=== PATIENT | male | born 1990 | race Caucasian/White ===

== ENCOUNTER 2017-04-16 21:20 | Emergency (ER) | payer SELFPAY ==
[2017-04-16 21:49] VITALS: BP 107/50; PULSE 85; TEMP 97.9; BMI 32.9
--- NOTE | 2017-04-16 21:59 | PDOC ---
History of Present Illness - General Chief Complaint: Pain Stated Complaint: SORE THROAT Time Seen by Provider: 04/16/17 21:58 - History of Present Illness Initial Comments: 26 year old male recently released from [facility] presenting with sore throat, right eye pain and injection, ear fullness, and cough for the past two weeks. He states that two days after his release on 03/31/17 he began to feel soreness in his throat and some ear fullness along with some redness in his right eye. He also has had occasional episodes of warmth but no recorded fevers at home or night sweats. The cough is productve of clear sputum and he had an episode of post-tussive emesis (clear phelgm) two days ago as well. He had an HIV test in [facility] that was negative back in February. He has had a few episodes of diarrhea over the past two days as well. He also admits to a lot of alcohol ingestion and marijuana inhalation that he was hoping would "break up my mucous". He denies chest pain, constipation, hemoptysis, palpitations, or other symptoms. 04/16/17 22:58 Past History - Past Medical History Allergies/Adverse Reactions: Allergies Allergy/AdvReac Type Severity Reaction Status Date / Time No Known Allergies Allergy Verified 04/16/17 21:49 Home Medications: Ambulatory Orders NK [No Known Home Medication] 04/16/17 Psychiatric Problems: Yes (Anxiety) - Surgical History GI Surgery: Yes (lt shoulder) - Immunization History Td Vaccination: Yes Immunization Up to Date: Yes - Psycho/Social/Smoking Cessation Hx Anxiety: No Suicidal Ideation: No Smoking Status: No Smoking History: Current every day smoker Years of Tobacco Use: 0 Number of Cigarettes Smoked Daily: 10 Cigars Per Day: 0 Information on smoking cessation initiated: No Hx Alcohol Use: No Drug/Substance Use Hx: No Substance Use Type: Marijuana Review of Systems - Review of Systems Constitutional: Yes: Loss of Appetite. No: Chills, Diaphoresis, Fever HEENTM: Yes: Eye Pain. No: Blurred Vision, Tearing, Recent change in vision, Double Vision Respiratory: Yes: Cough, Productive cough. No: Shortness of Breath, Wheezing Cardiac (ROS): No: Chest Pain, Irregular Heart Rate ABD/GI: Yes: Diarrhea, Poor Appetite, Vomiting. No: Constipated, Nausea : No: Burning, Dysuria, Discharge, Frequency Musculoskeletal: Yes: Back Pain Neurological: No: Headache *Physical Exam - Vital Signs Last Vital Signs Temp Pulse Resp BP Pulse Ox 97.9 F 85 18 107/50 98 04/16/17 21:43 04/16/17 21:43 04/16/17 21:43 04/16/17 21:43 04/16/17 21:43 - Physical Exam General Appearance: Yes: Nourished, Appropriately Dressed. No: Apparent Distress HEENT: positive: EOMI, [place] (Scleral injection in left eye at lateral and medial margins but no drainage or exudate.), Muffled/Hoarse voice, Pharyngeal Erythema, TM Bulging (Bulging but not opaque). negative: Normal Voice (Course vocal quality), Pharynx Normal (Erythematous curbing stonecutter oropharnyx), Photophobia, Tonsillar Exudate, Tonsillar Erythema, Nasal Congestion, Rhinorrhea, Sinus Tenderness, Hearing Decreased Neck: positive: Trachea midline, Normal Thyroid, Supple. negative: Tender, Rigid Respiratory/Chest: positive: Lungs Clear, Normal Breath Sounds. negative: Chest Tender, Respiratory Distress, Accessory Muscle Use Cardiovascular: positive: Regular Rhythm, Regular Rate. negative: S1, S2, Edema Gastrointestinal/Abdominal: positive: Normal Bowel Sounds, Flat, Soft. negative : Tender, Organomegaly Musculoskeletal: positive: Normal Inspection, Other (Right Lower paraspinal tenderness). negative: CVA Tenderness Neurologic: positive: Fully Oriented, Alert, Normal Mood/Affect, Normal Response Medical Decision Making - Medical Decision Making 26 year old recently incarcerated male presenting with cough, sore throat, and ear fullness for the past two weeks. This is most likely a viral syndrome but given his recent incarceration, he should be ruled out for TB and HIV. He declined a repeat HIV test because of his negative reaction in February. A rapid strep will be sent in addition to a CXR. Symptomatic treatment will be pursued including viscous lidocaine and toradol 15 IM. 04/17/17 00:42 04/17/17 00:46 CXR returned negative and rapid step negative. Pain was relieved with Toradol and viscous lidocaine. he will be sent home with follow up with Topher Slade and a prescription for cough syrup and Tessalon pearls. *DC/Admit/Observation/Transfer Diagnosis at time of Disposition: Sore throat - Discharge Dispostion Disposition: HOME Condition at time of disposition: Improved Admit: No - Referrals Referrals: Topher Slade MD [Staff Physician] - - Patient Instructions Additional Instructions: You were seen for cough, sore throat, and eye redness. We believe this is all caused by a viral infection that will get better after taking some cough medication and resting your body. You should avoid drinking, smoking, and staying up later for the next week to allow your body to heal and your throat to get better. Please follow up with Dr. Slade early this week to discuss any of your other concerns. Please return if you have worsening symptoms over the next few days or if you do not get better after 4-5 days. - Attestations Physician Attestion: I, Dr. Adarsh Irwin, attest that this document has been prepared under my direction and personally reviewed by me in its entirety. I further attest, that it accurately reflects all work, treatment, procedures and medical decision -making performed by me. 04/17/17 00:51
--- NOTE | 2017-04-16 22:39 | PDOC ---
Attending Attestation - Resident Resident Name: Adarsh Irwin - ED Attending Attestation I have performed the following: I have examined & evaluated the patient, The case was reviewed & discussed with the resident, I agree w/resident's findings & plan, Exceptions are as noted - HPI HPI: 04/16/17 22:32 26yo M hx recently incarderated (released 03/31/17) p/w 2 weeks of sore throat, cough, subjective fevers, and vomiting after coughing. Sore throat presented initially, then productive cough of clear sputum. Has not checked his temperature. Here today as sore throat is worse and he is vomiting clear mucous. Has tried marijuana to help with cough. +etoh use___. + sick contact with one of his sexual encounters. Also reports 2 episodes of NB diarrhea daily for the last 2 days. Denies CP, SOB, weight loss or night sweats. No hemoptysis. Denies abd pain, penile DC, dysuria. - Physicial Exam PE: 04/16/17 22:36 Vital Signs Temp Pulse Resp BP Pulse Ox 97.9 F 85 18 107/50 98 04/16/17 21:43 04/16/17 21:43 04/16/17 21:43 04/16/17 21:43 04/16/17 21:43 " GENERAL: Awake, alert, and fully oriented, in no acute distress HEAD: No signs of trauma EYES: PERRLA, EOMI, sclera anicteric, +mild L scleral injection ENT: Auricles normal inspection, hearing grossly normal, nares patent, mild oropharyngeal erythem without exudates. Moist mucosa NECK: Normal ROM, supple, no lymphadenopathy, JVD, or masses LUNGS: Breath sounds equal, clear to auscultation bilaterally. No wheezes, and no crackles HEART: Regular rate and rhythm, normal S1 and S2, no murmurs, rubs or gallops ABDOMEN: Soft, nontender, normoactive bowel sounds. No guarding, no rebound. No masses EXTREMITIES: Normal range of motion, no edema. No clubbing or cyanosis. No cords, erythema, or tenderness MUSCULOSKELETAL: FROM in all extremities, no deformities NEUROLOGICAL: Normal speech SKIN: Warm, Dry, normal turgor, no rashes or lesions noted. " - Medical Decision Making 04/17/17 00:24 26yo M recently incarcerated p/w cough, post-tussive emesis, sore throat, subjective fevers, and mildly injected eye. Likely viral syndrome but given patient was recently incarcerated, will check CXR. Pt declines HIV test as he had one 2 months ago. Will check throat swab for strep throat -rapid strep test -CXR -toradol for sore throat -likely DC to f/u with Dr Topher Slade who he used to see prior to being incarcerated 04/17/17 00:34 CXR clear Throat swab negative Pt feels better, will follow up with Dr. Slade within 1 week Stable for DC home
[2017-04-16] MEDS ORDERED: KETOROLAC TROMETHAMINE 15 MG/ML VIAL IM ONE (22:46)
[2017-04-16] MEDS ORDERED: KETOROLAC TROMETHAMINE 30 MG/1 ML VIAL ONE (23:14)
[2017-04-16] MEDS ORDERED: LIDOCAINE VISCOUS 2% ORAL/TOP 20 ML UNIT-DOSE CUP MM ONE (23:59)
== END 2017-04-17 01:57 | disposition home or self-care (01) ==
LOC: JER 21:20
PROC: 3E0233Z Introduction of Anti-inflammatory into Muscle, Percutaneous Approach (ICD-10-PCS; principal; 2017-04-16)
DX: J02.9 Acute pharyngitis, unspecified (principal); F41.9 Anxiety disorder, unspecified; F17.210 Nicotine dependence, cigarettes, uncomplicated
CPT/HCPCS: 71020-TC; 87070; 87430; 99282-25

== ENCOUNTER 2019-02-15 00:18 | Emergency (ER) | payer OTHER | END 2019-02-15 02:35 | disposition home or self-care (01) | LOC: JER 00:18 ==

== ENCOUNTER 2019-04-16 09:59 | Emergency (ER) | payer OTHER ==
[2019-04-16 10:07] VITALS: BP 121/82; PULSE 98; TEMP 97.8; BMI 33.0
[2019-04-16] MEDS ORDERED: ONDANSETRON 4 MG TABLET PO ONE (10:45)
[2019-04-16] MEDS ORDERED: LOPERAMIDE HCL 2 MG CAPSULE PO ONE (10:45)
[2019-04-16] MEDS ORDERED: MAG HYDROX/AL HYDROX/SIMETH 30 ML UNIT-DOSE CUP PO ONE (10:45)
--- NOTE | 2019-04-16 10:57 | PDOC ---
History of Present Illness - General Chief Complaint: Pain, Acute Stated Complaint: NAUSEA/SHAKY Time Seen by Provider: 04/16/19 10:16 History Source: Patient Exam Limitations: No Limitations - History of Present Illness Initial Comments: 04/16/19 10:58 28 y/o male presents to the ED w/ c/o nausea, vomiting, and upper abd cramping along with anxiety since last night. Pt states was placed on Klonopin a few months ago for anxiety and nw feels he is addicted to them. pt also on [place] and was told to go to the ED for evaluation. Timing/Duration: intermittent Severity: moderate Associated Symptoms: reports: nausea/vomiting Past History - Travel Traveled outside of the country in the last 30 days: No Close contact w/someone who was outside of country & ill: No - Past Medical History Allergies/Adverse Reactions: Allergies Allergy/AdvReac Type Severity Reaction Status Date / Time No Known Allergies Allergy Verified 04/16/19 10:03 Home Medications: Ambulatory Orders Diphenhydramine HCl [Benadryl Capsule -] 25 mg PO HS 04/12/19 Anemia: No Asthma: No Cancer: No Cardiac Disorders: No CVA: No ( ) COPD: No CHF: No Diabetes: No GI Disorders: No Disorders: No HTN: No Hypercholesterolemia: No Liver Disease: No Psychiatric Problems: Yes (Anxiety) Seizures: Yes (drug related oct 2017) Thyroid Disease: No - Surgical History GI Surgery: Yes (lt shoulder) Orthopedic Surgery: Yes (left shoulder surgery) - Immunization History Td Vaccination: Yes TDAP Vaccination: Yes Immunization Up to Date: Yes - Suicide/Smoking/Psychosocial Hx Smoking Status: No Smoking History: Current every day smoker Years of Tobacco Use: 0 Have you smoked in the past 12 months: No Number of Cigarettes Smoked Daily: 10 Cigars Per Day: 0 Information on smoking cessation initiated: Yes Hx Alcohol Use: No Drug/Substance Use Hx: Yes (KLONOPIN) Substance Use Type: Alcohol, Heroin, Marijuana, Opiates, Tranquilizers Hx Substance Use Treatment: Yes (detox, rehab) Patient Lives Alone: No Review of Systems - Review of Systems Able to Perform ROS?: Yes Constitutional: No: Symptoms Reported HEENTM: No: Symptoms Reported Respiratory: No: Symptoms reported Cardiac (ROS): No: Symptoms Reported ABD/GI: Yes: Diarrhea, Nausea, Vomiting : No: Symptoms Reported Musculoskeletal: No: Symptoms Reported Integumentary: No: Symptoms Reported Neurological: No: Symptoms reported Psychiatric: Yes: Anxiety *Physical Exam - Vital Signs Last Vital Signs Temp Pulse Resp BP Pulse Ox 97.8 F 98 H 18 121/82 100 04/16/19 10:03 04/16/19 10:03 04/16/19 10:03 04/16/19 10:03 04/16/19 10:03 - Physical Exam General Appearance: Yes: Nourished, Appropriately Dressed. No: Apparent Distress HEENT: negative: Pale Conjunctivae Neck: positive: Supple Respiratory/Chest: positive: Lungs Clear, Normal Breath Sounds. negative: Respiratory Distress, Accessory Muscle Use Cardiovascular: positive: Regular Rhythm, Regular Rate. negative: Murmur Gastrointestinal/Abdominal: positive: Soft. negative: Tenderness Extremity: positive: Normal Inspection Integumentary: positive: Normal Color, Warm, Moist Neurologic: positive: Motor Strength 5/5 (ambulatory) Medical Decision Making - Medical Decision Making 04/16/19 10:32 CC: Nausea, diarrhea, and upper abd pain, ran out of Klonopin 2mg and had last one yesterday morning , now anxious Exam: vss, no abd tenderness, good affect Plan: maalox, zofran, and imodium 04/16/19 10:57 *DC/Admit/Observation/Transfer Diagnosis at time of Disposition: Nausea vomiting and diarrhea, Anxiety - Discharge Dispostion Disposition: HOME Condition at time of disposition: Good - Referrals - Patient Instructions Printed Discharge Instructions: Anxiety and Panic Attacks (Alternative Therapy) , Nausea and Vomiting-Adult Additional Instructions: Please take medication as prescribed as needed for your nausea, vomiting, or diarrhea. I also recommend reading over information on alternative therapy for anxiety. - Post Discharge Activity
[2019-04-16] MEDS ORDERED: MAG HYDROX/AL HYDROX/SIMETH 30 ML UNIT-DOSE CUP ONE ×2 (11:18→12:15)
[2019-04-16] MEDS ORDERED: LOPERAMIDE HCL 2 MG CAPSULE ONE ×2 (11:18→12:15)
[2019-04-16] MEDS ORDERED: ONDANSETRON *ODT* 4 MG TABLET ONE ×2 (11:18→12:15)
== END 2019-04-16 12:23 | disposition home or self-care (01) ==
LOC: JER 09:59
DX: F41.9 Anxiety disorder, unspecified (principal)
CPT/HCPCS: 99281-25

== ENCOUNTER 2019-06-02 07:30 | Emergency (ER) | payer SELFPAY ==
[2019-06-02 07:40] VITALS: BP 115/76; PULSE 111; TEMP 98.8; BMI 32.6
--- NOTE | 2019-06-02 08:15 | PDOC ---
History of Present Illness - General Chief Complaint: Eye Problem Stated Complaint: PINK EYE Time Seen by Provider: 06/02/19 07:53 History Source: Patient - History of Present Illness Timing/Duration: other Severity: moderate Past History - Past Medical History Allergies/Adverse Reactions: Allergies Allergy/AdvReac Type Severity Reaction Status Date / Time No Known Allergies Allergy Verified 04/16/19 10:03 Home Medications: Ambulatory Orders Diphenhydramine HCl [Benadryl Capsule -] 25 mg PO HS 04/12/19 Loperamide HCl [Imodium -] 2 mg PO Q8H PRN #21 capsule 04/16/19 Mag Hydrox/Aluminum Hyd/Simeth [Maalox Advanced Suspension] 30 ml PO QID PRN # 300 ml 04/16/19 Ondansetron HCl [Zofran] 4 mg PO TID PRN #12 tablet 04/16/19 Erythromycin 0.5% Eye Ointment [Erythromycin 0.5% Eye Ointment -] 1 applic OD DAILY #1 tube 06/02/19 Anemia: No Asthma: No Cancer: No Cardiac Disorders: No CVA: No ( ) COPD: No CHF: No Diabetes: No GI Disorders: No Disorders: No HTN: No Hypercholesterolemia: No Liver Disease: No Psychiatric Problems: Yes (Anxiety) Seizures: Yes (drug related oct 2017) Thyroid Disease: No - Surgical History GI Surgery: Yes (lt shoulder) Orthopedic Surgery: Yes (left shoulder surgery) - Immunization History Td Vaccination: Yes TDAP Vaccination: Yes Immunization Up to Date: Yes - Suicide/Smoking/Psychosocial Hx Smoking Status: No Smoking History: Current every day smoker Years of Tobacco Use: 0 Have you smoked in the past 12 months: No Number of Cigarettes Smoked Daily: 10 Cigars Per Day: 0 Information on smoking cessation initiated: No Hx Alcohol Use: No Drug/Substance Use Hx: Yes (KLONOPIN) Substance Use Type: Alcohol, Heroin, Marijuana, Opiates, Tranquilizers Hx Substance Use Treatment: Yes (detox, rehab) Review of Systems - Review of Systems Constitutional: No: Chills, Fever HEENTM: Yes: Eye Pain, Tearing, Throat Pain. No: Blurred Vision, Ear Pain Respiratory: No: Cough *Physical Exam - Vital Signs Last Vital Signs Temp Pulse Resp BP Pulse Ox 98.8 F 111 H 20 115/76 99 06/02/19 07:34 06/02/19 07:34 06/02/19 07:34 06/02/19 07:34 06/02/19 07:34 - Physical Exam General Appearance: Yes: Appropriately Dressed. No: Apparent Distress HEENT: positive: Normal Voice, Other (R conjunc erythema w/ copious yellow discharge, minimal swelling to periorbital area without erythema, warmth or ttp , no lid lesions) Neck: positive: Supple. negative: Lymphadenopathy (R), Lymphadenopathy (L) Respiratory/Chest: negative: Respiratory Distress Integumentary: positive: Dry, Warm Neurologic: positive: Fully Oriented, Alert, Normal Mood/Affect Medical Decision Making - Medical Decision Making 06/02/19 08:18 28 yo M, no sig hx, here w/ R conjunc erythema w/ pain and yellow discharge x 2 days. No itching or blurry vision. Also reports throat pain. No f/c. No sick contacts. No contact lens use see exam Conjunctivitis No contact lens use Rpt HR 86, was 111 at triage, R conjunc erythema w/ yellow discharge -Dc w/ erythromycin ointment, basic eye care -contact precautions given -To return as needed 06/02/19 08:22 *DC/Admit/Observation/Transfer Diagnosis at time of Disposition: Conjunctivitis Qualifiers: Conjunctivitis type: unspecified Laterality: right Qualified Code(s): H10.9 - Unspecified conjunctivitis - Discharge Dispostion Disposition: HOME Condition at time of disposition: Good - Prescriptions Prescriptions: Erythromycin 0.5% Eye Ointment [Erythromycin 0.5% Eye Ointment -] 1 applic OD DAILY #1 tube - Referrals - Patient Instructions Printed Discharge Instructions: Conjunctivitis Additional Instructions: Use ointment as directed Apply warm compresses frequently throughout the day Return to the ER for worsening of symptoms - Post Discharge Activity Forms/Work/School Notes: Back to Work
== END 2019-06-02 08:34 | disposition home or self-care (01) ==
LOC: JER 07:30
DX: H10.31 Unspecified acute conjunctivitis, right eye (principal)
CPT/HCPCS: 99281-25

== ENCOUNTER 2019-07-05 09:26 | Inpatient (IN) | payer OTHER ==
[2019-07-05 09:41] VITALS: BMI 30.4
--- NOTE | 2019-07-05 10:42 | HP ---
"CIWA Score Nausea/Vomitin-Mild Nausea/No Vomiting Muscle Tremors: 1-None Visible, but [place] Anxiety: 3 Agitation: 4-Moderately Restless Paroxysmal Sweats: 1-Minimal Palms Moist Orientation: 1-Uncertain about Date Tacttile Disturbances: 0-None Auditory Disturbances: 0-None Visual Disturbances: 0-None Headache: 5-Severe CIWA-Ar Total Score: 16 - Admission Criteria [facility] Guidelines: Admission for Medically Managed Detox: Requires at least one of the followin. CIWA greater than 12 2. Seizures within the past 24 hours 3. Delirium tremens within the past 24 hours 4. Hallucinations within the past 24 hours 5. Acute intervention needed for co occurring medical disorder 6. Acute intervention needed for co occurring psychiatric disorder 7. Severe withdrawal that cannot be handled at a lower level of care (continued vomiting, continued diarrhea, abnormal vital signs) requiring intravenous medication and/or fluids 8. Admitting History and Physical - Smoking History Smoking history: Current every day smoker Have you smoked in the past 12 months: No Aproximately how many cigarettes per day: 5 - Alcohol/Substance Use Hx Alcohol Use: No Admission ROS [facility] Allergies/Adverse Reactions: Allergies Allergy/AdvReac Type Severity Reaction Status Date / Time No Known Allergies Allergy Verified 07/05/19 09:37 History of Present Illness: This report was requested by: Jessenia Cooper | Reference #: [id number] Others' Prescriptions Patient Name: Leonardo Lima Date: 1990 Address: [place] [address] Sex: Male Rx Written Rx Dispensed Drug Quantity Days Supply Prescriber Name 03/26/2019 03/28/2019 chlordiazepoxide 25 mg capsule 8 2 Ivan Ramos Patient Name: Leonardo Lima Date: 1990 Address: [address] [place] [address] Sex: Male Rx Written Rx Dispensed Drug Quantity Days Supply Prescriber Name 03/12/2019 03/12/2019 clonazepam 0.5 mg tablet 7 7 Tenisha Lees) 03/12/2019 03/12/2019 suboxone 8 mg-2 mg sl film 30 15 Tenisha Lees) pt here requesting detox from opiates and benzo use, reports cannabis since age 15 , oxycodone 2 x/week Percocet benzo : 2-3 x /week x 2 mg x 2 sticks mdma - 3 x/week adderall - daily 20 mg cocaine - denies etoh - denies tobacco - 3 cigs /day Seizure 2017 after stopping xanax pmhx : anxiety , add, c-sp frx , l-sp frx 10/13 no surgery , chronic pain pshx : left shoulder arthroscopic , shx ; lives w/ family , finances habit from family , unemployed , does drive , on parole for non- drug related charges , sent to this facility . Exam Limitations: No Limitations - Ebola screening Have you traveled outside of the country in the last 21 days: No (N) Have you had contact with anyone from an Ebola affected area: No Do you have a fever: No - Review of Systems Constitutional: Loss of Appetite EENT: reports: No Symptoms Reported Respiratory: reports: No Symptoms reported Cardiac: reports: No Symptoms Reported GI: reports: Diarrhea : reports: No Symptoms Reported Musculoskeletal: reports: See HPI, Back Pain Integumentary: reports: No Symptoms Reported Neuro: reports: Headache, Seizure Endocrine: reports: No Symptoms Reported Psychiatric: reports: Orientated x3, Agitated, Anxious Patient History - Patient Medical History Hx Anemia: No Hx Asthma: No Hx Chronic Obstructive Pulmonary Disease (COPD): No Hx Cancer: No Hx Cardiac Disorders: No Hx Congestive Heart Failure: No Hx Hypertension: No Hx Hypercholesterolemia: No Hx Pacemaker: No HX Cerebrovascular Accident: No ( ) Hx Seizures: Yes (drug related oct 2017) Hx Diabetes: No Hx Gastrointestinal Disorders: No Hx Liver Disease: No Hx Genitourinary Disorders: No Hx Sexually Transmitted Disorders: No Hx Renal Disease (ESRD): No Hx Thyroid Disease: No Hx Human Immunodeficiency Virus (HIV): No Hx Hepatitis C: No Hx Depression: Yes (anxiety - never hospitalized ) Hx Suicide Attempt: No Hx Bipolar Disorder: No Hx Schizophrenia: No - Patient Surgical History Past Surgical History: No Hx Orthopedic Surgery: Yes (left shoulder surgery) - Smoking Cessation Smoking history: Current every day smoker Have you smoked in the past 12 months: No Aproximately how many cigarettes per day: 5 Cigars Per Day: 0 Hx Chewing Tobacco Use: No Initiated information on smoking cessation: Yes 'Breaking Loose' booklet given: 07/05/19 - Substances abused Alprazolam (Xanax) Other (specify): 2MG Substance route: Oral Frequency: 3-6 times per week Amount used: 2 tab of 2mg Age of first use: 14 Date of last use: 07/02/19 Marijuana/Hashish Substance route: Oral Frequency: 1-2 times per week Amount used: 1joint Age of first use: 14 Date of last use: 07/05/19 Alcohol Substance route: Oral Frequency: 1-2 times per week Amount used: 1 cup of frozen margaritas Age of first use: 12 Date of last use: 06/22/19 K2/Spice Substance route: Smoking Frequency: Daily Amount used: $20 Age of first use: 20 Date of last use: 02/01/19 Benzodiazepine (Klonopin) Substance route: Oral Frequency: Daily Amount used: 2 tab of 2 mg Age of first use: 24 Date of last use: 07/02/19 Oxycontin Substance route: Oral Frequency: Daily Amount used: 10mg Age of first use: 24 Date of last use: 03/01/19 Ectasy Substance route: Oral Frequency: 1-2 times per week Amount used: 1 pill Age of first use: 28 Date of last use: 07/03/19 Admission Physical Exam S - Vital Signs Vital Signs: Vital Signs - 24 hr 07/05/19 09:31 Temperature 97.5 F L Pulse Rate 104 H Respiratory 17 Rate Blood Pressure 110/74 - Physical General Appearance: Yes: Irritable, Anxious HEENTM: Yes: EOMI, Hearing grossly Normal, Normocephalic, Normal Voice Respiratory: Yes: Lungs Clear, Normal Breath Sounds, No Respiratory Distress, No Accessory Muscle Use Neck: Yes: No masses,lesions,Nodules, Trachea in good position Cardiology: Yes: Regular Rhythm, Regular Rate, S1, S2 Abdominal: Yes: Normal Bowel Sounds, Non Tender, Soft Musculoskeletal: Yes: Gait Steady Neurological: Yes: Fully Oriented, Alert, Motor Strength 5/5 Integumentary: Yes: Warm - Diagnostic (1) Opiate dependence Current Visit: Yes Status: Acute Qualifiers: Substance use status: uncomplicated Qualified Code(s): F11.20 - Opioid dependence, uncomplicated (2) Benzodiazepine abuse Current Visit: Yes Status: Acute Comment: in [place] for rehab he plans to seek pychiatric help for anxiety (3) Cannabis dependence Current Visit: Yes Status: Chronic Comment: counseled abstinence (possible source of methamphetamine) (4) Nicotine dependence Current Visit: Yes Status: Chronic Qualifiers: Nicotine product type: cigarettes Substance use status: uncomplicated Qualified Code(s): F17.210 - Nicotine dependence, cigarettes, uncomplicated Comment: counseled cessation - not ready Breathalyzer - Breathalyzer Breathalyzer: 0 Urine Drug Screen - Test Device Lot number: [id number] Expiration date: 03/10/21 - Control Is test valid?: Yes - Results Drug screen NEGATIVE: No Urine drug screen results: THC-Marijuana, MET-Methamphetamine, AMP-Amphetamines , OXY-Oxycodone, BZO-Benzodiazepines, MDMA-Ecstasy Inpatient Rehab Admission - Rehab Decision to Admit Inpatient rehab admission?: No"
[2019-07-05] MEDS ORDERED: MAG HYDROX/AL HYDROX/SIMETH 30 ML UNIT-DOSE CUP PO PRN (10:52)
[2019-07-05] MEDS ORDERED: MAGNESIUM CITRATE 300 ML BOTTLE PO PRN (10:52)
[2019-07-05] MEDS ORDERED: MENTHOL/PHENOL 1 EACH UD MM PRN (10:52)
[2019-07-05] MEDS ORDERED: MELATONIN 5 MG TABLETS PO PRN (10:52)
[2019-07-05] MEDS ORDERED: IBUPROFEN 400 MG TABLET (FP) PO PRN (10:52)
[2019-07-05] MEDS ORDERED: METHOCARBAMOL 500 MG TABLET PO PRN (10:52)
[2019-07-05] MEDS ORDERED: ACETAMINOPHEN 325 MG TABLET (FP) PO PRN ×2 (10:52)
[2019-07-05] MEDS ORDERED: hydrOXYzine PAMOATE 25 MG CAPSULE (FP) PO PRN (10:52)
[2019-07-05] MEDS ORDERED: MAGNESIUM HYDROX 2400MG/30ML ORAL SUSPENSION 30 ML CUP PO PRN (10:52)
[2019-07-05] MEDS ORDERED: BISMUTH SUBSALICYLATE 262 MG/15 ML BTL PO PRN (10:52)
[2019-07-05] MEDS: diazePAM 5 MG TABLET PO PRN ×2 (12:09→17:38)
[2019-07-05] MEDS: diazePAM 5 MG TABLET PO SCH ×2 (13:14→22:41)
--- NOTE | 2019-07-05 18:09 | CONSULT ---
[facility] Psychiatric Consult - Data Date of interview: 07/05/19 Admission source: [facility] Identifying data: First admission to [facility] for this 28 y/o male referred by his patrol officer for detoxification (KRUPA issues : opiates, ecstasy , cannabis, alcohol, xanax, nicotine). Interviewed at [address] [place] [address]. Patient is single , no dependents, domiciled, unemployed and supported by relatives. Substance Abuse History: Discussed with patient. Detaisl in current [facility] report as follows : Smoking history: Current every day smoker. Have you smoked in the past 12 months: No. Aproximately how many cigarettes per day: 5. Cigars Per Day: 0. Hx Chewing Tobacco Use: No. Initiated information on smoking cessation : Yes. 'Breaking Loose' booklet given: 07/05/19. - Substances abused. Alprazolam (Xanax). Other (specify): 2MG. Substance route: Oral. Frequency: 3 -6 times per week. Amount used: 2 tab of 2mg. Age of first use: 14. Date of last use: 07/02/19. Marijuana/Hashish. Substance route: Oral. Frequency: 1 -2 times per week. Amount used: 1joint. Age of first use: 14. Date of last use: 07/05/19. Alcohol. Substance route: Oral. Frequency: 1-2 times per week. Amount used: 1 cup of frozen margaritas. Age of first use: 12. Date of last use: 06/22/19. K2/Spice. Substance route: Smoking. Frequency: Daily. Amount used: $20. Age of first use: 20. Date of last use: 02/01/19. Benzodiazepine (Klonopin). Substance route: Oral. Frequency: Daily. Amount used: 2 tab of 2 mg. Age of first use: 24. Date of last use: 07/02/19. Oxycontin. Substance route: Oral. Frequency: Daily. Amount used: 10mg. Age of first use: 24. Date of last use: 03/01/19. Ectasy. Substance route: Oral. Frequency: 1-2 times per week. Amount used: 1 pill. Age of first use: 28. Date of last use: 10/23/19 Medical History: Patient endorses good general health. Psychiatric History: Early onset of emotional issues (seen by psychiatrists at age 12 + diagnosed with ADHD + prescribed medications). Names of medications : not recalled. Patient denies history of psychiatric hospitalizations. No psychiatric OPD care. No affiliation with mental health care providers. Mr Lima reports that he buys xanax, adderall and other drugs from street dealers. Denies history of suicide attempts. Physical/Sexual Abuse/Trauma History: Patient declines discussion of this domain. Additional Comment: Urine drug screen results: THC-Marijuana, MET- Methamphetamine, AMP-Amphetamines, OXY-Oxycodone, BZO-Benzodiazepines, MDMA- Ecstasy. Noted. Mental Status Exam - Mental Status Exam Alert and Oriented to: Time, Place, Person Cognitive Function: Good Patient Appearance: Well Groomed Mood: Nervous, Anxious Affect: Mood Congruent Patient Behavior: Fatigued, Cooperative Speech Pattern: Clear Voice Loudness: Normal Thought Process: Goal Oriented Thought Disorder: Not Present Hallucinations: Denies Suicidal Ideation: Denies Homicidal Ideation: Denies Insight/Judgement: Poor Sleep: Fair Appetite: Good Muscle strength/Tone: Normal Gait/Station: Normal Psychiatric Findings - Problem List ([place] 1, 2,3) (1) Opiate dependence Current Visit: Yes Status: Chronic Qualifiers: Substance use status: uncomplicated Qualified Code(s): F11.20 - Opioid dependence, uncomplicated (2) Benzodiazepine abuse Current Visit: Yes Status: Chronic Comment: in [place] for rehab he plans to seek pychiatric help for anxiety (3) Cannabis dependence Current Visit: Yes Status: Chronic Comment: counseled abstinence (possible source of methamphetamine) (4) Nicotine dependence Current Visit: Yes Status: Chronic Qualifiers: Nicotine product type: cigarettes Substance use status: uncomplicated Qualified Code(s): F17.210 - Nicotine dependence, cigarettes, uncomplicated Comment: counseled cessation - not ready (5) Amphetamine abuse Current Visit: Yes Status: Chronic (6) Substance induced mood disorder Current Visit: Yes Status: Chronic (7) History of attention deficit hyperactivity disorder (ADHD) Current Visit: Yes Status: Chronic Comment: Self-report. (8) Non-compliance Current Visit: Yes Status: Chronic - Initial Treatment Plan Initial Treatment Plan: Psychoeducation. Sleep hygiene. Detoxification. Observation.
[2019-07-05] MEDS ORDERED: THIAMINE HCL 100 MG TABLET (FP) PO SCH (22:00)
[2019-07-06] MEDS: diazePAM 5 MG TABLET PO SCH (05:48)
[2019-07-06] MEDS ORDERED: diazePAM 5 MG TABLET PO SCH (06:00)
[2019-07-06] MEDS ORDERED: PRENATAL VITAMINS W/ FOLIC ACID TABLET (FP) PO SCH (10:00)
[2019-07-06] MEDS ORDERED: diazePAM 5 MG TABLET PO ONE ×2 (15:03→21:00)
[2019-07-06] MEDS ORDERED: LIDOCAINE 5% TOPICAL PATCH TP SCH (15:15)
--- NOTE | 2019-07-06 17:48 | PN ---
[facility] CIWA - CIWA Score Nausea/Vomitin-No Nausea/No Vomiting Muscle Tremors: None Anxiety: 4-Mod. Anxious/Guarded Agitation: 2 Paroxysmal Sweats: 3 Orientation: 0-Oriented Tacttile Disturbances: 3-Moderate Itch/Numb/Burn Auditory Disturbances: 0-None Visual Disturbances: 2-Mild Sensitivity Headache: 0-None Present CIWA-Ar Total Score: 14 BHS Progress Note (SOAP) Subjective: Sweating, Body Aches, Anxious, Hot / Cold Sensations. Objective: PATIENT A & O X 3, OBSERVED AMBULATING ON DETOX UNIT UNASSISTED. IN NO ACUTE DISTRESS. 07/06/19 17:46 Vital Signs Temperature 97.0 F L 07/06/19 09:58 Pulse Rate 90 07/06/19 09:58 Respiratory Rate 18 07/06/19 09:58 Blood Pressure 109/73 07/06/19 09:58 O2 Sat by Pulse Oximetry (%) PATIENT REFUSED TO HAVE DETOX ADMISSION LABS DRAWN. 07/06/19 17:47 Assessment: 07/06/19 17:47 WITHDRAWAL SYMPTOMS. Plan: CONTINUE DETOX. PRN ROBAXIN FOR BODY ACHES / MUSCLE SPASMS. LIDODERM PATCH FOR PAIN IN UPPER BACK. DUE TO SEVERITY OF WITHDRAWAL SYMPTOMS, PATIENT GRANTED 1 ADDITIONAL DAY TO REMAIN IN TREATMENT FOR DETOX, SO THAT PATIENT NOW SCHEDULED FOR DISCHARGE ON 07/08/2019.
[2019-07-06 18:14] VITALS: BP 115/74; PULSE 84; TEMP 96.2
--- NOTE | 2019-07-06 19:20 | PN ---
[facility] Progress Note Note: patient stated he has been abused ecstacy,cannabis,xanax abused, no complaint no withdrawal symptom patient is stable for discharge for rehab today
--- NOTE | 2019-07-06 19:28 | PN ---
[facility] CIWA - CIWA Score Nausea/Vomitin-No Nausea/No Vomiting Muscle Tremors: 1-None Visible, but [place] Anxiety: 1-Mildly Anxious Agitation: 1-Slight > Activity Paroxysmal Sweats: No Perspiration Orientation: 0-Oriented Tacttile Disturbances: 0-None Auditory Disturbances: 0-None Visual Disturbances: 0-None Headache: 1-Very Mild CIWA-Ar Total Score: 4 BHS Progress Note (SOAP) Subjective: alert,irritable,anxious Objective: 07/06/19 19:28 Vital Signs Temperature 96.2 F L 07/06/19 18:13 Pulse Rate 84 07/06/19 18:13 Respiratory Rate 18 07/06/19 18:13 Blood Pressure 115/74 07/06/19 18:13 O2 Sat by Pulse Oximetry (%) Assessment: 07/06/19 19:28 no withdrawal symptom Plan: stable for discharge to rehab
--- NOTE | 2019-07-06 19:29 | DS ---
[facility] Detox Discharge Summary Admission Date: 07/05/19 Discharge Date: 07/06/19 - History Present History: Cocaine Dependence, Opioid Dependence, Sedative Dependence Additional Comments: stable to be discharged to rehab Pertinent Past History: adhd - Physical Exam Results Vital Signs: Vital Signs Temperature 96.2 F L 07/06/19 18:13 Pulse Rate 84 07/06/19 18:13 Respiratory Rate 18 07/06/19 18:13 Blood Pressure 115/74 07/06/19 18:13 O2 Sat by Pulse Oximetry (%) Pertinent Admission Physical Exam Findings: Vital Signs Temperature 96.2 F L 07/06/19 18:13 Pulse Rate 84 07/06/19 18:13 Respiratory Rate 18 07/06/19 18:13 Blood Pressure 115/74 07/06/19 18:13 O2 Sat by Pulse Oximetry (%) - Treatment Hospital Course: Detox Protocol Followed, Detoxed Safely, Responded well, Discharged Condition Good, Rehab Referral Accepted - Medication Discharge Medications: Ambulatory Orders NK [No Known Home Medication] 06/25/19 - Diagnosis (1) Nicotine dependence Current Visit: Yes Status: Acute (2) Amphetamine abuse Current Visit: Yes Status: Chronic (3) Benzodiazepine abuse Current Visit: Yes Status: Chronic (4) Cannabis dependence Current Visit: Yes Status: Chronic (5) History of attention deficit hyperactivity disorder (ADHD) Current Visit: Yes Status: Chronic (6) Opiate dependence Current Visit: Yes Status: Chronic Qualifiers: Substance use status: uncomplicated Qualified Code(s): F11.20 - Opioid dependence, uncomplicated - AMA Did Patient Leave Against Medical Advice: No
[2019-07-06] MEDS ORDERED: LIDOCAINE PATCH REMOVAL MC SCH (22:00)
[2019-07-07] MEDS ORDERED: diazePAM 5 MG TABLET PO SCH (06:00)
[2019-07-07] MEDS ORDERED: diazePAM 5 MG TABLET PO ONE (06:00)
[2019-07-08] MEDS ORDERED: diazePAM 5 MG TABLET PO ONE (06:00)
== END 2019-07-06 20:15 | disposition other institution (70) | DRG 773 ==
LOC: YASAS 09:26 → Y3N 11:29
PROVIDERS: ADMIT Allergy & Immunology; ATTEND Allergy & Immunology
PROC: HZ2ZZZZ Detoxification Services for Substance Abuse Treatment (ICD-10-PCS; principal; 2019-07-05)
DX: F11.23 Opioid dependence with withdrawal (principal); F10.10 Alcohol abuse, uncomplicated; F13.10 Sedative, hypnotic or anxiolytic abuse, uncomplicated; F12.20 Cannabis dependence, uncomplicated; F15.10 Other stimulant abuse, uncomplicated; F19.24 Other psychoactive substance dependence with psychoactive substance-induced mood disorder; F41.8 Other specified anxiety disorders; F32.9 Major depressive disorder, single episode, unspecified; Z86.69 Personal history of other diseases of the nervous system and sense organs; Z91.19 Patient's noncompliance with other medical treatment and regimen

== ENCOUNTER 2019-07-06 21:07 | Inpatient (IN) | payer OTHER ==
[2019-07-06] MEDS ORDERED: MELATONIN 5 MG TABLETS PO PRN (22:00)
[2019-07-06] MEDS ORDERED: MAG HYDROX/AL HYDROX/SIMETH 30 ML UNIT-DOSE CUP PO PRN (23:15)
[2019-07-06] MEDS ORDERED: LOPERAMIDE HCL 2 MG CAPSULE PO PRN (23:15)
[2019-07-06] MEDS ORDERED: hydrOXYzine PAMOATE 25 MG CAPSULE (FP) PO PRN (23:15)
[2019-07-06] MEDS ORDERED: MAGNESIUM HYDROX 2400MG/30ML ORAL SUSPENSION 30 ML CUP PO PRN (23:15)
[2019-07-06] MEDS ORDERED: P-EPHED 60MG/TRIPROLIDI 2.5MG TABLET PO PRN (23:15)
[2019-07-06] MEDS ORDERED: MENTHOL/PHENOL 1 EACH UD MM PRN (23:15)
[2019-07-06] MEDS ORDERED: ACETAMINOPHEN 325 MG TABLET (FP) PO PRN (23:15)
[2019-07-06] MEDS ORDERED: MAGNESIUM CITRATE 300 ML BOTTLE PO PRN (23:15)
[2019-07-06] MEDS ORDERED: IBUPROFEN 400 MG TABLET (FP) PO PRN (23:15)
[2019-07-06] MEDS ORDERED: NICOTINE POLACRILEX 2 MG GUM BUC PRN (23:15)
[2019-07-06] MEDS ORDERED: guaiFENesin 200 MG/10 ML 10 ML UNIT-DOSE CUPS PO PRN (23:15)
[2019-07-07 06:53] VITALS: BP 113/87; PULSE 87; TEMP 97.7
[2019-07-07] MEDS ORDERED: PRENATAL VITAMINS W/ FOLIC ACID TABLET (FP) PO SCH (10:00)
[2019-07-07] MEDS ORDERED: NICOTINE 14 MG/24 HOURS TOPICAL PATCH TD SCH (10:00)
[2019-07-07] MEDS ORDERED: THIAMINE HCL 100 MG TABLET (FP) PO SCH (22:00)
--- NOTE | 2019-07-19 10:22 | DS ---
[facility] Rehab Discharge Summary - [facility] Rehab Discharge Summary Admission Date: 07/06/19 Discharge Date: 07/19/19 - History Present History: Cannabis dependence, Cocaine dependence, Opioid dependence, Sedative dependence Pertinent Past History: cocaine abused benzodiazepam abused cocaine dependence cannabis abused adhd nicotine dependence - Discharge Physical Exam Vital Signs: Vital Signs Temperature 97.7 F 07/07/19 06:52 Pulse Rate 87 07/07/19 06:52 Respiratory Rate 18 07/07/19 06:52 Blood Pressure 113/87 07/07/19 06:52 O2 Sat by Pulse Oximetry (%) Pertinent Admission Physical Exam Findings: Vital Signs Temperature 97.7 F 07/07/19 06:52 Pulse Rate 87 07/07/19 06:52 Respiratory Rate 18 07/07/19 06:52 Blood Pressure 113/87 07/07/19 06:52 O2 Sat by Pulse Oximetry (%) - Treatment Hospital Course: 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 - Medication Discharge Medications: Ambulatory Orders Alprazolam [Xanax -] 2 mg PO TID 04/21/15 Oxycodone HCl 30 mg PO BID 04/21/15 NK [No Known Home Medication] 06/25/19 - Discharge Instructions Diet, activity, other medical instructions: Diet: Activity: Other medical instructions: - Diagnosis (1) Cocaine abuse Status: Acute (2) Amphetamine abuse Status: Chronic (3) Benzodiazepine abuse Status: Chronic (4) Cannabis dependence Status: Chronic (5) History of attention deficit hyperactivity disorder (ADHD) Status: Chronic (6) Nicotine dependence Status: Chronic Qualifiers: Nicotine product type: cigarettes Substance use status: uncomplicated Qualified Code(s): F17.210 - Nicotine dependence, cigarettes, uncomplicated - AMA Did Patient Leave Against Medical Advice: Yes Additional Comments: patient walked off the unit,nursing lamp shades supervisor informed
--- NOTE | 2019-07-19 10:25 | HP ---
[facility] Rehab Assess/Revision - Admission History Admitted to Rehab from: [facility] Date of Admission to Rehab: - Findings Detox History & Physical reviewed: Yes Concur with findings: Yes Comments/Additional Findings: for rehab as protocol Inpatient Rehab Admission - Rehab Decision to Admit Inpatient rehab admission?: Yes - Initial Determination Are CD services needed?: Yes Free of communicable disease: Yes Not in need of hospitalization: Yes - Rehab Admission Criteria Previous failed treatment: Yes Poor recovery environment: Yes Comorbidities: Yes Lacks judgement: No Patient is meeting Inpatient Rehab admission criteria:: Yes
== END 2019-07-07 10:15 | disposition left against medical advice (07) | DRG 770 ==
LOC: YASAS 21:07 → Y5N 21:10
PROVIDERS: ADMIT Neuromusculoskeletal Medicine & OMM; ATTEND Neuromusculoskeletal Medicine & OMM
PROC: HZ42ZZZ Group Counseling for Substance Abuse Treatment, Cognitive-Behavioral (ICD-10-PCS; principal; 2019-07-06)
DX: F11.20 Opioid dependence, uncomplicated (principal); F13.10 Sedative, hypnotic or anxiolytic abuse, uncomplicated; F14.10 Cocaine abuse, uncomplicated; F90.9 Attention-deficit hyperactivity disorder, unspecified type; F12.10 Cannabis abuse, uncomplicated; F17.210 Nicotine dependence, cigarettes, uncomplicated

== ENCOUNTER 2020-05-04 21:57 | Inpatient (IN) | payer OTHER ==
--- NOTE | 2020-05-05 00:20 | HP ---
COWS - Scale Resting Pulse: 1= [place] 81-100 Sweatin=Flushed/Facial Moisture Restless Observation: 0= Sits Still Pupil Size: 0= Normal to Room Light Bone or Joint Aches: 2= Severe Diffuse Aches Runny Nose/ Eye Tearin= Nasal Congestion GI Upset > 30mins: 1= Stomach Cramp Tremor Observation: 2= Slight Tremor Visible Yawning Observation: 0= None Anxiety or Irritability: 4=Extreme Anxiety Goose Flesh Skin: 0=Smooth Skin COWS Score: 13 CIWA Score Nausea/Vomitin Muscle Tremors: 3 Anxiety: 3 Agitation: 3 Paroxysmal Sweats: 2 Orientation: 0-Oriented Tacttile Disturbances: 0-None Auditory Disturbances: 0-None Visual Disturbances: 0-None Headache: 0-None Present CIWA-Ar Total Score: 13 - Admission Criteria [facility] Guidelines: Admission for Medically Managed Detox: Requires at least one of the followin. CIWA greater than 12 2. Seizures within the past 24 hours 3. Delirium tremens within the past 24 hours 4. Hallucinations within the past 24 hours 5. Acute intervention needed for co occurring medical disorder 6. Acute intervention needed for co occurring psychiatric disorder 7. Severe withdrawal that cannot be handled at a lower level of care (continued vomiting, continued diarrhea, abnormal vital signs) requiring intravenous medication and/or fluids 8. Admitting History and Physical - Smoking History Smoking history: Current every day smoker Have you smoked in the past 12 months: No Aproximately how many cigarettes per day: 5 - Alcohol/Substance Use Hx Alcohol Use: Yes (weekends) Admission [facility] Chief Complaint: Seeking admission to detox from Percocet and Xanax Allergies/Adverse Reactions: Allergies Allergy/AdvReac Type Severity Reaction Status Date / Time No Known Allergies Allergy Verified 05/04/20 23:29 History of Present Illness: 29 years old male is seeking admission to detox from opioids and benzo. His last admission was for the period 07/05/2019-07/07/2019 and he reports that he relapsed as soon as he left the facility. He reports use of 1 x 20mg and 1 x 30mg Oxycodone tablet daily. He has medical history of seizures, CVA, psych. history of depression and anxiety. He denies suicidal ideation at this time. He is unemployed, lives with his parents and denies legal issues. He denies blackouts or overdose. Patient is refusing use of methadone for detoxification. He reports that the last time he was with a program for suboxone was in July 2019. Exam Limitations: No Limitations - Ebola screening Have you traveled outside of the country in the last 21 days: No Have you had contact with anyone from an Ebola affected area: No Have you been sick,other than usual withdrawal symptoms: No Do you have a fever: No - Review of Systems Constitutional: Chills, Loss of Appetite, Malaise EENT: reports: No Symptoms Reported Respiratory: reports: No Symptoms reported Cardiac: reports: No Symptoms Reported GI: reports: Nausea, Poor Appetite, Poor Fluid Intake, Abdominal cramping : reports: No Symptoms Reported Musculoskeletal: reports: Back Pain, Muscle Pain Integumentary: reports: Dryness, Flushing Neuro: reports: Tremors Endocrine: reports: No Symptoms Reported Hematology: reports: No Symptoms Reported Psychiatric: reports: Mood/Affect Appropiate, Orientated x3, Anxious, Depressed Other Systems: Reviewed and Negative Patient History - Patient Medical History Hx Anemia: No Hx Asthma: No Hx Chronic Obstructive Pulmonary Disease (COPD): No Hx Cancer: No Hx Cardiac Disorders: No Hx Congestive Heart Failure: No Hx Hypertension: No Hx Hypercholesterolemia: No Hx Pacemaker: No HX Cerebrovascular Accident: No ( ) Hx Seizures: Yes Hx Diabetes: No Hx Gastrointestinal Disorders: No Hx Liver Disease: No Hx Genitourinary Disorders: No Hx Sexually Transmitted Disorders: No Hx Renal Disease (ESRD): No Hx Thyroid Disease: No Hx Human Immunodeficiency Virus (HIV): No Hx Hepatitis C: No Hx Depression: Yes (+ anxiety - Not on medication) Hx Suicide Attempt: No Hx Bipolar Disorder: No Hx Schizophrenia: No - Patient Surgical History Past Surgical History: Yes Hx Neurologic Surgery: No Hx Cataract Extraction: No Hx Cardiac Surgery: No Hx Lung Surgery: No Hx Abdominal Surgery: No Hx Appendectomy: No Hx Cholecystectomy: No Hx Genitourinary Surgery: No Hx Orthopedic Surgery: Yes (left shoulder surgery) Anesthesia Reaction: No - PPD History Previous Implant?: Yes Implanted On Prior [facility] Admission?: Yes Date: 07/07/19 Results: Not read-AMA PPD to be Administered?: Yes - Reproductive History Patient is a Female of Child Bearing Age (11 -55 yrs old): No (male) - Smoking Cessation Smoking history: Current every day smoker Have you smoked in the past 12 months: No Aproximately how many cigarettes per day: 5 Cigars Per Day: 0 Hx Chewing Tobacco Use: No Initiated information on smoking cessation: Yes 'Breaking Loose' booklet given: 05/05/20 - Substance & Tx. History Hx Alcohol Use: No Hx Substance Use: Yes Substance Use Type: Opiates Hx Substance Use Treatment: Yes ([facility]) - Substances abused Oxycontin Substance route: Oral Frequency: Daily Amount used: 1 x 20mg and 1 x 30mg Oxycodone tablet Age of first use: 25 Date of last use: 05/04/20 Admission Physical Exam [facility] Physical General Appearance: Yes: Moderate Distress, Tremorous, Sweating, Anxious HEENTM: Yes: Within Normal Limits Respiratory: Yes: Lungs Clear, Normal Breath Sounds, No Respiratory Distress Neck: Yes: Within Normal Limits Breast: Yes: Breast Exam Deferred Cardiology: Yes: Within Normal Limits Abdominal: Yes: Normal Bowel Sounds Genitourinary: Yes: Within Normal Limits Back: Yes: Normal Inspection Musculoskeletal: Yes: Back pain, Muscle Pain Extremities: Yes: Tremors Neurological: Yes: Within Normal Limits Integumentary: Yes: Warm Lymphatic: Yes: Within Normal Limits - Diagnostic (1) Opioid dependence with withdrawal Current Visit: Yes Status: Acute (2) Depression Current Visit: Yes Status: Chronic (3) Anxiety Current Visit: Yes Status: Chronic (4) Cannabis dependence Current Visit: Yes Status: Chronic Comment: counseled abstinence (possible source of methamphetamine) (5) Nicotine dependence Current Visit: Yes Status: Chronic Qualifiers: Nicotine product type: cigarettes Substance use status: uncomplicated Qualified Code(s): F17.210 - Nicotine dependence, cigarettes, uncomplicated Comment: counseled cessation - not ready Cleared for Admission [facility] - Detox or Rehab [facility] Level of Care: Medically Managed Detox Regimen/Protocol: Valium Claeared for Rehab Admission: No Breathalyzer - Breathalyzer Breathalyzer: 0 Urine Drug Screen - Test Device Lot number: [id number] Expiration date: 12/17/21 - Control Is test valid?: Yes - Results Drug screen NEGATIVE: No Urine drug screen results: THC-Marijuana, MET-Methamphetamine, AMP-Amphetamines, OXY-Oxycodone, BZO-Benzodiazepines, BUP-Suboxone Inpatient Rehab Admission - Rehab Decision to Admit Inpatient rehab admission?: No
[2020-05-05] MEDS ORDERED: ACETAMINOPHEN 325 MG TABLET (FP) PO PRN ×2 (00:51)
[2020-05-05] MEDS ORDERED: ONDANSETRON *ODT* 4 MG TABLET SL ONE (00:51)
[2020-05-05] MEDS ORDERED: IBUPROFEN 400 MG TABLET (FP) PO PRN (00:51)
[2020-05-05] MEDS ORDERED: MAGNESIUM HYDROX 2400MG/30ML ORAL SUSPENSION 30 ML CUP PO PRN (00:51)
[2020-05-05] MEDS ORDERED: BISMUTH SUBSALICYLATE 524 MG/30 ML UD PO PRN (00:51)
[2020-05-05] MEDS ORDERED: hydrOXYzine PAMOATE 25 MG CAPSULE (FP) PO PRN (00:51)
[2020-05-05] MEDS ORDERED: diazePAM 5 MG TABLET PO PRN (00:51)
[2020-05-05] MEDS ORDERED: MAG HYDROX/AL HYDROX/SIMETH 30 ML UNIT-DOSE CUP PO PRN (00:51)
[2020-05-05] MEDS ORDERED: MENTHOL/PHENOL 1 EACH UD MM PRN (00:51)
[2020-05-05] MEDS ORDERED: MAGNESIUM CITRATE 300 ML BOTTLE PO PRN (00:51)
[2020-05-05] MEDS ORDERED: METHOCARBAMOL 500 MG TABLET PO PRN (00:51)
[2020-05-05] MEDS: diazePAM 5 MG TABLET PO SCH ×3 (07:56→22:32)
--- NOTE | 2020-05-05 09:36 | CONSULT ---
[facility] Psychiatric Consult - Data Date of interview: 05/05/20 Admission source: [facility] Identifying data: Patient is a 29 year old single male, without children, unemployed, domiciled, and is financially supported by his family. This is one of multiple admissions for patient. Patient admitted to for marijuana and opiate dependence. Substance Abuse History: Smoking Cessation. Smoking history: Current every day smoker. Have you smoked in the past 12 months: No. Aproximately how many cigarettes per day: 5. Cigars Per Day: 0. Hx Chewing Tobacco Use: No. Initiated information on smoking cessation: Yes. 'Breaking Loose' booklet given: 05/05/20. - Substance & Tx. History. Hx Alcohol Use: No. Hx Substance Use: Yes. Substance Use Type: Opiates. Hx Substance Use Treatment: Yes ([facility]). - Substances abused. Oxycontin. Substance route: Oral. Frequency: Daily. Amount used: 1 x 20mg and 1 x 30mg Oxycodone tablet. Age of first use: 25. Date of last use: 05/04/20 Medical History: denies. endorses good health. Psychiatric History: Patient denies history of psychiatric hospitalizations, outpatient psychiatric care, and suicide attempt. Mr. Lima reports buying xanac on the streets. At present patient presents as lethargic and states he does not need additional medications. Physical/Sexual Abuse/Trauma History: denies. Mental Status Exam - Mental Status Exam Alert and Oriented to: Time, Place, Person Cognitive Function: Good Patient Appearance: Well Groomed Mood: Withdrawn Affect: Mood Congruent Patient Behavior: Fatigued (lethargic) Speech Pattern: Delayed (Patient mildly sedated laying in bed.) Voice Loudness: Moderately Soft/Quiet Thought Process: Goal Oriented Hallucinations: Denies Suicidal Ideation: Denies Homicidal Ideation: Denies Insight/Judgement: Poor Sleep: Fair Appetite: Fair Muscle strength/Tone: Normal Gait/Station: Other (Gait not observed.) Psychiatric Findings - Problem List ([place] 1, 2,3) (1) Opioid dependence with withdrawal Current Visit: Yes Status: Acute (2) Cannabis dependence Current Visit: Yes Status: Acute Comment: counseled abstinence (possible source of methamphetamine) (3) Amphetamine abuse Current Visit: Yes Status: Chronic (4) Substance induced mood disorder Current Visit: Yes Status: Acute - Initial Treatment Plan Initial Treatment Plan: Psychoeducation provided. Detoxification in progress. Observation.
[2020-05-05] MEDS: PRENATAL VITAMINS W/ FOLIC ACID TABLET (FP) PO SCH (10:30)
--- NOTE | 2020-05-05 12:39 | EKG ---
Test Reason : Blood Pressure : / mmHG Vent. Rate : 060 BPM Atrial Rate : 060 BPM P-R Int : 136 ms QRS Dur : 108 ms QT Int : 418 ms P-R-T Axes : 043 042 040 degrees QTc Int : 418 ms NORMAL SINUS RHYTHM NORMAL ECG WHEN COMPARED WITH ECG OF 01-OCT-2009 01:13, NO SIGNIFICANT CHANGE WAS FOUND Confirmed by MD Glynn Daniel ([id number]) on 05/05/2020 12:39:32 PM Referred By: Guillermo Yap Confirmed By:Jason Glynn MD
[2020-05-05] MEDS ORDERED: cloNIDine HCL 0.1 MG TABLET PO PRN (14:37)
--- NOTE | 2020-05-05 14:37 | PN ---
[facility] CIWA - CIWA Score Nausea/Vomitin-Mild Nausea/No Vomiting Muscle Tremors: 2 Anxiety: 2 Agitation: 2 Paroxysmal Sweats: No Perspiration Orientation: 0-Oriented Tacttile Disturbances: 1-Very Mild Itch/Numbness Auditory Disturbances: 0-None Visual Disturbances: 0-None Headache: 2-Mild CIWA-Ar Total Score: 10 BHS COWS - Scale Resting Pulse: 0= [place] 80 or Below Sweatin= No chills or Flushing Restless Observation: 0= Sits Still Pupil Size: 0= Normal to Room Light Bone or Joint Aches: 2= Severe Diffuse Aches Runny Nose/ Eye Tearin= Runny Nose/Eyes GI Upset > 30mins: 1= Stomach Cramp Tremor Observation of Outstretched Hands: 2= Slight Tremor Visible Yawning Observation: 1= 1-2x During Session Anxiety or Irritability: 2=Irritable/Anxious Goose Flesh Skin: 0=Smooth Skin COWS Score: 10 [facility] Progress Note (SOAP) Subjective: alert,irritable,anxious,interrupted sleep,tremor,pain in the body and back Objective: 05/05/20 14:35 Vital Signs Temperature 96.8 F L 05/05/20 12:37 Pulse Rate 62 05/05/20 12:37 Respiratory Rate 18 05/05/20 12:37 Blood Pressure 100/61 05/05/20 12:37 O2 Sat by Pulse Oximetry (%) 95 05/05/20 12:37 Assessment: 05/05/20 14:36 withdrawal symptom Plan: continue detox valium regimen,patient refused methadone tamez opiate withdrawal,clonidine 0.1 mg q 6 hrs prn for withdrawal
[2020-05-05] MEDS ORDERED: MELATONIN 5 MG TABLETS PO SCH (22:00)
[2020-05-05] MEDS ORDERED: THIAMINE HCL 100 MG TABLET (FP) PO SCH (22:00)
[2020-05-06] MEDS ORDERED: diazePAM 5 MG TABLET PO SCH (06:00)
[2020-05-06 09:16] VITALS: BP 101/62; PULSE 57; TEMP 97.8
[2020-05-06 10:40] LABS: HEMATOCRIT 44.2 % (35.4-49); HEMOGLOBIN 14.9 GM/dL (11.7-16.9); MCH 31.9 pg (25.7-33.7); MCHC 33.6 g/dl (32.0-35.9); MEAN PLT VOLUME 10.8 fl (7.5-11.1); PLATELET COUNT 167 K/MM3 (134-434); RBC 4.65 M/mm3 (4.00-5.60); RDW 13.2 % (11.9-15.9); WHITE BLOOD COUNT 6.6 K/mm3 (4.0-10.0)
[2020-05-06 10:45] LABS: ALBUMIN 3.5 g/dl (3.4-5.0); BILIRUBIN,TOTAL 0.6 mg/dL (0.2-1); BLOOD UREA NITROGEN 10.4 mg/dL (7-18); CALCIUM 8.9 mg/dL (8.5-10.1); CREATININE 0.8 mg/dL (0.55-1.3); POTASSIUM 3.9 mmol/L (3.5-5.1); TOT PROT 6.8 g/dl (6.4-8.2)
[2020-05-06] MEDS: PRENATAL VITAMINS W/ FOLIC ACID TABLET (FP) PO SCH (10:45)
--- NOTE | 2020-05-06 11:25 | HP ---
COWS - Scale Resting Pulse: 1= CT 81-100 Sweatin=Flushed/Facial Moisture Restless Observation: 0= Sits Still Pupil Size: 0= Normal to Room Light Bone or Joint Aches: 2= Severe Diffuse Aches Runny Nose/ Eye Tearin= Nasal Congestion GI Upset > 30mins: 1= Stomach Cramp Tremor Observation: 2= Slight Tremor Visible Yawning Observation: 0= None Anxiety or Irritability: 4=Extreme Anxiety Goose Flesh Skin: 0=Smooth Skin COWS Score: 13 CIWA Score Nausea/Vomitin-Mild Nausea/No Vomiting Muscle Tremors: 2 Anxiety: 2 Agitation: 2 Paroxysmal Sweats: No Perspiration Orientation: 0-Oriented Tacttile Disturbances: 1-Very Mild Itch/Numbness Auditory Disturbances: 0-None Visual Disturbances: 0-None Headache: 2-Mild CIWA-Ar Total Score: 10 - Admission Criteria OASAS Guidelines: Admission for Medically Managed Detox: Requires at least one of the followin. CIWA greater than 12 2. Seizures within the past 24 hours 3. Delirium tremens within the past 24 hours 4. Hallucinations within the past 24 hours 5. Acute intervention needed for co occurring medical disorder 6. Acute intervention needed for co occurring psychiatric disorder 7. Severe withdrawal that cannot be handled at a lower level of care (continued vomiting, continued diarrhea, abnormal vital signs) requiring intravenous medication and/or fluids 8. Admitting History and Physical - Smoking History Smoking history: Current every day smoker Have you smoked in the past 12 months: No Aproximately how many cigarettes per day: 5 - Alcohol/Substance Use Hx Alcohol Use: No Admission [facility] Allergies/Adverse Reactions: Allergies Allergy/AdvReac Type Severity Reaction Status Date / Time No Known Allergies Allergy Verified 05/04/20 23:29 - Ebola screening Have you traveled outside of the country in the last 21 days: No Have you had contact with anyone from an Ebola affected area: No Have you been sick,other than usual withdrawal symptoms: No Do you have a fever: No Patient History - Patient Medical History Hx Anemia: No Hx Asthma: No Hx Chronic Obstructive Pulmonary Disease (COPD): No Hx Cancer: No Hx Cardiac Disorders: No Hx Congestive Heart Failure: No Hx Hypertension: No Hx Hypercholesterolemia: No Hx Pacemaker: No HX Cerebrovascular Accident: No ( ) Hx Seizures: Yes Hx Diabetes: No Hx Gastrointestinal Disorders: No Hx Liver Disease: No Hx Genitourinary Disorders: No Hx Sexually Transmitted Disorders: No Hx Renal Disease (ESRD): No Hx Thyroid Disease: No Hx Human Immunodeficiency Virus (HIV): No Hx Hepatitis C: No Hx Depression: Yes (+ anxiety - Not on medication) Hx Suicide Attempt: No Hx Bipolar Disorder: No Hx Schizophrenia: No - Patient Surgical History Past Surgical History: Yes Hx Neurologic Surgery: No Hx Cataract Extraction: No Hx Cardiac Surgery: No Hx Lung Surgery: No Hx Breast Surgery: No Hx Breast Biopsy: No Hx Abdominal Surgery: No Hx Appendectomy: No Hx Cholecystectomy: No Hx Genitourinary Surgery: No Hx Section: No Hx Orthopedic Surgery: Yes (left shoulder surgery) Anesthesia Reaction: No - PPD History Previous Implant?: Yes Implanted On Prior [facility] Admission?: Yes Date: 07/07/19 Results: Not read-AMA - Smoking Cessation Smoking history: Current every day smoker Have you smoked in the past 12 months: No Aproximately how many cigarettes per day: 5 Cigars Per Day: 0 Hx Chewing Tobacco Use: No Initiated information on smoking cessation: Yes 'Breaking Loose' booklet given: 05/05/20 - Substances abused Oxycontin Substance route: Oral Frequency: Daily Amount used: 1 x 20mg and 1 x 30mg Oxycodone tablet Age of first use: Date of last use: 05/04/20 Alprazolam (Xanax) Other (specify): benzo Substance route: Oral Frequency: Daily Amount used: 4-6 mg po daily Age of first use: 25 Date of last use: 05/04/20 Admission Physical Exam [facility] - Vital Signs Vital Signs: Vital Signs - 24 hr 05/05/20 05/05/20 05/05/20 12:37 16:23 20:33 Temperature 96.8 F L 97.3 F L 97.7 F Pulse Rate 62 75 74 Respiratory 18 18 16 Rate Blood Pressure 100/61 98/63 117/81 O2 Sat by Pulse 95 100 Oximetry (%) 05/06/20 08:32 Temperature 97.8 F Pulse Rate 57 L Respiratory 16 Rate Blood Pressure 101/62 O2 Sat by Pulse Oximetry (%) Breathalyzer - Breathalyzer Breathalyzer: 0 Urine Drug Screen - Test Device Lot number: [id number] Expiration date: 12/17/21 - Control Is test valid?: Yes - Results Drug screen NEGATIVE: No Urine drug screen results: THC-Marijuana, MET-Methamphetamine, AMP-Amphetamines, OXY-Oxycodone, BZO-Benzodiazepines, BUP-Suboxone Inpatient Rehab Admission - Rehab Decision to Admit Inpatient rehab admission?: No
--- NOTE | 2020-05-06 13:01 | PN ---
[facility] Progress Note Note: patient does not want to complete treatment,all attempts to convince patient to stay with no avail,high risks of relapsing explained, understood,patient signed release ama,advise to call 911 if not feeling well
--- NOTE | 2020-05-06 13:01 | DS ---
[facility] Detox Discharge Summary Admission Date: 05/05/20 Discharge Date: 05/06/20 - History Present History: Cannabis Dependence, Opioid Dependence, Sedative Dependence Additional Comments: alert,oriented x 3 ambulation on the unit lung clear,bilaterally,on auscultation no abdominal pain patient signed release ama advise to call 911 if not feeling well Pertinent Past History: nicotine dependence - Physical Exam Results Vital Signs: Vital Signs Temperature 97.8 F 05/06/20 08:32 Pulse Rate 57 L 05/06/20 08:32 Respiratory Rate 16 05/06/20 08:32 Blood Pressure 101/62 05/06/20 08:32 O2 Sat by Pulse Oximetry (%) 100 05/05/20 20:33 Pertinent Admission Physical Exam Findings: withdrawal signs and symptom Laboratory Last Values WBC 6.6 K/mm3 (4.0-10.0) 05/06/20 08:10 RBC 4.65 M/mm3 (4.00-5.60) 05/06/20 08:10 Hgb 14.9 GM/dL (11.7-16.9) 05/06/20 08:10 Hct 44.2 % (35.4-49) 05/06/20 08:10 MCV 95.0 fl (80-96) 05/06/20 08:10 MCH 31.9 pg (25.7-33.7) 05/06/20 08:10 MCHC 33.6 g/dl (32.0-35.9) 05/06/20 08:10 RDW 13.2 % (11.9-15.9) 05/06/20 08:10 Plt Count 167 K/MM3 (134-434) 05/06/20 08:10 MPV 10.8 fl (7.5-11.1) 05/06/20 08:10 Sodium 141 mmol/L (136-145) 05/06/20 08:10 Potassium 3.9 mmol/L (3.5-5.1) 05/06/20 08:10 Chloride 105 mmol/L (98-107) 05/06/20 08:10 Carbon Dioxide 31 mmol/L (21-32) 05/06/20 08:10 Anion Gap 5 MMOL/L (8-16) L 05/06/20 08:10 BUN 10.4 mg/dL (7-18) 05/06/20 08:10 Creatinine 0.8 mg/dL (0.55-1.3) 05/06/20 08:10 Est GFR (CKD-EPI)AfAm 139.91 05/06/20 08:10 Est GFR (CKD-EPI)NonAf 120.72 05/06/20 08:10 Random Glucose 82 mg/dL (74-106) 05/06/20 08:10 Calcium 8.9 mg/dL (8.5-10.1) 05/06/20 08:10 Total Bilirubin 0.6 mg/dL (0.2-1) 05/06/20 08:10 AST 23 U/L (15-37) 05/06/20 08:10 ALT 24 U/L (13-61) 05/06/20 08:10 Alkaline Phosphatase 68 U/L (45-117) 05/06/20 08:10 Total Protein 6.8 g/dl (6.4-8.2) 05/06/20 08:10 Albumin 3.5 g/dl (3.4-5.0) 05/06/20 08:10 Syphilis Serology Non-reactive (NONREACTIVE) 05/06/20 08:10 Vital Signs Temperature 97.8 F 05/06/20 08:32 Pulse Rate 57 L 05/06/20 08:32 Respiratory Rate 16 05/06/20 08:32 Blood Pressure 101/62 05/06/20 08:32 O2 Sat by Pulse Oximetry (%) 100 05/05/20 20:33 - Medication Discharge Medications: Ambulatory Orders Alprazolam [Xanax -] 2 mg PO TID 04/21/15 oxyCODONE HCL [Oxycodone HCl] 30 mg PO BID 04/21/15 Buprenorphine/Naloxone [Suboxone 8Mg/2Mg Sl Film -] 1 each SL DAILY 05/04/20 - Diagnosis (1) Uncomplicated sedative, hypnotic or anxiolytic withdrawal Current Visit: Yes Status: Acute (2) Opiate dependence Current Visit: No Status: Chronic Qualifiers: Substance use status: uncomplicated Qualified Code(s): F11.20 - Opioid dependence, uncomplicated (3) Cannabis abuse Current Visit: Yes Status: Acute - AMA Did Patient Leave Against Medical Advice: Yes
[2020-05-07] MEDS ORDERED: diazePAM 5 MG TABLET PO ONE (06:00)
== END 2020-05-06 12:56 | disposition left against medical advice (07) | DRG 770 ==
LOC: YASAS 21:57 → Y3N 05-05 01:07
PROVIDERS: ADMIT Allergy & Immunology; ATTEND Allergy & Immunology
PROC: HZ2ZZZZ Detoxification Services for Substance Abuse Treatment (ICD-10-PCS; principal; 2020-05-05)
DX: F11.23 Opioid dependence with withdrawal (principal); F13.230 Sedative, hypnotic or anxiolytic dependence with withdrawal, uncomplicated; F12.20 Cannabis dependence, uncomplicated; F15.10 Other stimulant abuse, uncomplicated; F17.210 Nicotine dependence, cigarettes, uncomplicated; F19.24 Other psychoactive substance dependence with psychoactive substance-induced mood disorder; F32.9 Major depressive disorder, single episode, unspecified; F41.9 Anxiety disorder, unspecified; G40.909 Epilepsy, unspecified, not intractable, without status epilepticus; Z56.0 Unemployment, unspecified
CPT/HCPCS: 36415; 80053; 85027; 86780; 93005; 93010; U0003

== ENCOUNTER 2021-03-04 00:43 | Emergency (ER) | payer OTHER ==
[2021-03-04 01:18] VITALS: BP 107/72; PULSE 105; TEMP 98.5; BMI 27.3
[2021-03-04] MEDS ORDERED: DIPHTH,PERTUSS(ACELL),TET 0.5 ML DISP.SYRIN IM ONE ×2 (02:14→03:57)
[2021-03-04] MEDS ORDERED: BACITRACIN 0.9 GM PACKET ONE (04:02)
[2021-03-04] MEDS ORDERED: BACITRACIN 0.9 GM PACKET TP ONE (04:25)
== END 2021-03-04 04:26 | disposition home or self-care (01) ==
LOC: JER 00:43
PROC: 3E0234Z Introduction of Serum, Toxoid and Vaccine into Muscle, Percutaneous Approach (ICD-10-PCS; principal; 2021-03-04)
DX: S80.02XA Contusion of left knee, initial encounter (principal)
CPT/HCPCS: 72170-TC-FY; 73552-TC-LT-FY; 73562-TC-LT-FY; 73590-TC-LT-FY; 90471; 90715; 99284-25

== ENCOUNTER 2021-06-24 13:29 | Inpatient (IN) | payer OTHER ==
[2021-06-24 14:30] VITALS: BMI 25.7
[2021-06-24] MEDS ORDERED: methaDONE HCL 10 MG TABLET (FOR DETOX USE ONLY) PO ONE (15:11)
[2021-06-24] MEDS ORDERED: METHOCARBAMOL 500 MG TABLET PO PRN (15:11)
[2021-06-24] MEDS ORDERED: ACETAMINOPHEN 325 MG TABLET (FP) PO PRN ×2 (15:11)
[2021-06-24] MEDS ORDERED: cloNIDine HCL 0.1 MG TABLET PO PRN (15:11)
[2021-06-24] MEDS ORDERED: MAGNESIUM HYDROX 2400MG/30ML ORAL SUSPENSION 30 ML CUP PO PRN (15:11)
[2021-06-24] MEDS ORDERED: MAGNESIUM CITRATE 300 ML BOTTLE PO PRN (15:11)
[2021-06-24] MEDS ORDERED: MAG HYDROX/AL HYDROX/SIMETH 30 ML UNIT-DOSE CUP PO PRN (15:11)
[2021-06-24] MEDS ORDERED: ONDANSETRON *ODT* 4 MG TABLET SL PRN (15:11)
[2021-06-24] MEDS ORDERED: MENTHOL/PHENOL 1 EACH UD MM PRN (15:11)
[2021-06-24] MEDS ORDERED: IBUPROFEN 400 MG TABLET (FP) PO PRN (15:11)
[2021-06-24] MEDS ORDERED: BISMUTH SUBSALICYLATE 262 MG/15 ML BTL PO PRN (15:11)
[2021-06-24] MEDS: PRENATAL VITAMINS W/ FOLIC ACID TABLET (FP) PO SCH (18:06)
[2021-06-24] MEDS: hydrOXYzine PAMOATE 25 MG CAPSULE (FP) PO SCH ×2 (18:06→22:34)
[2021-06-24] MEDS ORDERED: diazePAM 5 MG TABLET PO PRN (18:57)
[2021-06-24] MEDS: MELATONIN 5 MG TABLETS PO SCH (22:33)
[2021-06-24] MEDS: diazePAM 5 MG TABLET PO SCH (22:33)
[2021-06-24] MEDS: THIAMINE HCL 100 MG TABLET (FP) PO SCH (22:33)
[2021-06-25] MEDS: diazePAM 5 MG TABLET PO SCH ×4 (06:30→22:32)
[2021-06-25] MEDS: hydrOXYzine PAMOATE 25 MG CAPSULE (FP) PO SCH ×5 (06:30→22:32)
[2021-06-25] MEDS ORDERED: methaDONE HCL 10 MG TABLET (FOR DETOX USE ONLY) ONE ×2 (09:09→14:33)
[2021-06-25 10:30] LABS: HEMATOCRIT 45.2 % (35.4-49); HEMOGLOBIN 15.4 GM/dL (11.7-16.9); MCH 31.7 pg (25.7-33.7); MCHC 34.1 g/dl (32.0-35.9); MEAN CELL VOLUME 92.9 fl (80-96); MEAN PLT VOLUME 11.3 fl (7.5-11.1); PLATELET COUNT 194 10^3/uL (134-434); RBC 4.86 M/mm3 (4.00-5.60); WHITE BLOOD COUNT 6.5 K/mm3 (4.0-10.0)
[2021-06-25] MEDS: PRENATAL VITAMINS W/ FOLIC ACID TABLET (FP) PO SCH (10:37)
[2021-06-25 11:16] LABS: CALCIUM 8.9 mg/dL (8.5-10.1)
[2021-06-25 11:17] LABS: ALBUMIN 3.8 g/dl (3.4-5.0)
[2021-06-25 11:19] LABS: CREATININE 0.9 mg/dL (0.55-1.3)
[2021-06-25 11:20] LABS: TOT PROT 7.7 g/dl (6.4-8.2)
[2021-06-25 11:24] LABS: BILIRUBIN,TOTAL 0.2 mg/dL (0.2-1)
[2021-06-25] MEDS ORDERED: methaDONE HCL 10 MG TABLET PO ONE (13:00)
[2021-06-25] MEDS ORDERED: methaDONE HCL 10 MG TABLET (FOR DETOX USE ONLY) PO ONE (13:30)
[2021-06-25] MEDS: MELATONIN 5 MG TABLETS PO SCH (22:32)
[2021-06-25] MEDS: THIAMINE HCL 100 MG TABLET (FP) PO SCH (22:32)
[2021-06-26] MEDS: diazePAM 5 MG TABLET PO SCH ×2 (05:44→14:16)
[2021-06-26] MEDS: hydrOXYzine PAMOATE 25 MG CAPSULE (FP) PO SCH ×4 (05:44→18:04)
[2021-06-26] MEDS ORDERED: methaDONE HCL 10 MG TABLET (FOR DETOX USE ONLY) PO ONE (10:00)
[2021-06-26] MEDS: PRENATAL VITAMINS W/ FOLIC ACID TABLET (FP) PO SCH (10:49)
[2021-06-26 19:01] VITALS: BP 123/74; PULSE 77; TEMP 97.1
[2021-06-27] MEDS ORDERED: diazePAM 5 MG TABLET PO SCH (06:00)
[2021-06-28] MEDS ORDERED: diazePAM 5 MG TABLET PO ONE (06:00)
[2021-06-28] MEDS ORDERED: methaDONE HCL 10 MG TABLET (FOR DETOX USE ONLY) PO ONE (10:00)
== END 2021-06-26 21:40 | disposition left against medical advice (07) | DRG 770 ==
LOC: YASAS 13:29 → Y6N 14:33
PROVIDERS: ADMIT Allergy & Immunology; ATTEND Allergy & Immunology
PROC: HZ2ZZZZ Detoxification Services for Substance Abuse Treatment (ICD-10-PCS; principal; 2021-06-24)
DX: F11.23 Opioid dependence with withdrawal (principal); F13.230 Sedative, hypnotic or anxiolytic dependence with withdrawal, uncomplicated; F15.20 Other stimulant dependence, uncomplicated; F12.20 Cannabis dependence, uncomplicated; Z87.891 Personal history of nicotine dependence
CPT/HCPCS: 36415; 80053; 85027; 86780; C9803; U0003; U0005

== ENCOUNTER 2023-03-12 13:22 | Emergency (ER) | payer OTHER ==
[2023-03-12 13:26] VITALS: BP 106/65; PULSE 95; RESP 18; TEMP 97.3; BMI 32.6
== END 2023-03-12 14:27 | disposition home or self-care (01) ==
LOC: JERFT 13:22
DX: H91.93 Unspecified hearing loss, bilateral (principal)
CPT/HCPCS: 99282-25

== ENCOUNTER 2023-08-29 15:04 | Emergency (ER) | payer OTHER ==
[2023-08-29 15:11] VITALS: BP 109/65; PULSE 83; RESP 16; TEMP 98.2; BMI 31.1
== END 2023-08-29 18:46 | disposition left against medical advice (07) ==
LOC: JER 15:04
DX: R07.9 Chest pain, unspecified (principal)
CPT/HCPCS: 93005; 93010; 99281-25